=== PATIENT | female | born 1970 | race Caucasian/White ===

== ENCOUNTER → 2017-09-04 09:44 | Outpatient (CLI) | payer MEDICAID, SELFPAY ==
--- NOTE | 2017-09-04 09:46 | US_ITS ---
STUDY: THYROID ULTRASOUND REASON FOR EXAM: Female, 47 years old. Nontoxic goiter TECHNIQUE: Ultrasound evaluation of the thyroid was performed with real-time and static webster-scale imaging. COMPARISON: None. FINDINGS: RIGHT LOBE: The right lobe of the thyroid gland measures 4.3 x 2 x 1.4 cm. There is a homogeneous echotexture. Small anechoic cyst in the midpole region measuring 5 x 4 x 4 mm LEFT LOBE: The left lobe of the thyroid gland measures 4 x 1.7 x 1.4 cm. There is a homogeneous echotexture. There are no demonstrated solid, cystic or complex lesions. ISTHMUS: The isthmus measures 3 mm. The regional lymph nodes are normal. US/Thyroid IMPRESSION: Small right mid pole thyroid cyst. Otherwise the thyroid is within normal limits Electronically Signed: Nasir Bowers DO at 12:27 EDT Tel , Service support ,
== END ==
DX: E04.1 Nontoxic single thyroid nodule (principal)
CPT/HCPCS: 76536

== ENCOUNTER → 2017-11-03 12:26 | Outpatient (CLI) | payer MEDICAID, SELFPAY ==
--- NOTE | 2017-11-03 12:54 | US_ITS ---
STUDY: ULTRASOUND BREAST - RIGHT REASON FOR EXAM: Female, 47 years old. Right axillary palpable abnormality. TECHNIQUE: Axial and longitudinal images of the RIGHT breast were performed with a high resolution ultrasound transducer. COMPARISON: Comparison is made with prior mammogram dated 2017. FINDINGS: RIGHT Breast: The axillary region of the right breast was examined by ultrasound. US/Breast Limited Unilateral IMPRESSION: 2 lymph nodes are identified within the right axilla. The larger measures 1.7 cm x 1 cm x 0.8 cm. ASSESSMENT CATEGORY: There are 2 small right axillary lymph nodes. Electronically Signed: Dane Prasad MD at 14:52 EDT Tel [phone], Service support ,
== END ==
DX: C77.3 Secondary and unspecified malignant neoplasm of axilla and upper limb lymph nodes (principal)
CPT/HCPCS: 76642

== ENCOUNTER → 2018-07-21 09:26 | Outpatient (CLI) | payer MEDICAID, SELFPAY ==
--- NOTE | 2018-07-21 09:25 | SP.MBSS_ITS ---
PRIMARY / SECONDARY DIAGNOSIS: dysphagia REFERRING PHYSICIAN: Barb Lombardo APRN-AMEYA CURRENT DIET: regular/thin DENTITION: natural, WFL MENTAL STATUS: WFL RESPIRATORY STATUS: WFL, oxygenating on room air PREVIOUS MODIFIED BARIUM SWALLOW STUDY: n/a REASON FOR REFERRAL: Patient reports a globus sensation in throat, pointing to region of clavicular notch to indicate location. Reports sensation of ?fullness? or ?swelling?. Sensation present at all times, although sometimes more prominent than others. Denies difficulty swallowing food/liquid. Denies coughing/choking. Denies allergies or reflux. STUDY FINDINGS: Patient participated in a Modified Barium Swallow (MBS) study on 07/21/2018. Dr. Evans was the radiologist present for this evaluation. This study was recorded in the lateral view and images were sent to PACs for storage. The following consistencies were presented to this patient for analysis of oropharyngeal swallow function: thin liquid, pudding and a regular texture shortbread cookie. Results of the MBS are as follows: PENETRATION / ASPIRATION SCALE (KEATING): 1 = does not enter airway 2 = enters airway/above vocal folds/ejected 3 = enters airway/above vocal folds/not ejected 4 = enters airway/contacts vocal folds/ejected 5 = enters airway/contacts vocal folds/not ejected 6 = enters airway/below vocal folds/ejected 7 = enters airway/below vocal folds/not ejected despite effort 8 = enters airway/below vocal folds/no effort PENETRATION / ASPIRATION SCALE (SCORE): 1.Thin liquid 5mL teaspoon: 2 2.Thin liquid 5mL teaspoon: 1 3.Thin liquid single sip cup: 1 4.Thin liquid sequential swallows cup: 2 5.Puddin 6.Cookie: 1 7.Thin liquid single sip straw: 1 IMPRESSION ORAL PHASE CHARACTERIZED BY: LABIAL SEAL: no labial escape TONGUE CONTROL DURING BOLUS MANIPULATION: cohesive bolus between tongue to palatal seal BOLUS PREPARATION / MASTICATION: timely and efficient chewing and mashing BOLUS TRANSPORT / LINGUAL MOTION: brisk tongue motion ORAL RESIDUE: trace residue lining oral structures PHARYNGEAL PHASE CHARACTERIZED BY: INITIATION OF PHARYNGEAL SWALLOW: bolus head at posterior laryngeal surface of epiglottis at first hyoid excursion SOFT PALATE ELEVATION: no bolus between soft palate and pharyngeal wall LARYNGEAL ELEVATION: complete superior movement of thyroid cartilage with complete approximation of arytenoids cartilage to epiglottic petiole ANTERIOR HYOID EXCURSION: complete anterior movement EPIGLOTTIC MOVEMENT: partial epiglottic inversion LARYNGEAL VESTIBULE CLOSURE AT HEIGHT OF SWALLOW: complete laryngeal vestibule closure with no air/contrast in laryngeal vestibule PHARYNGEAL STRIPPING WAVE: pharyngeal stripping wave present / complete PHARYNGOESOPHAGEAL SEGMENT OPENING: partial distension and partial duration; partial obstruction of flow TONGUE BASE RETRACTION: trace column of contrast between tongue base and posterior pharyngeal wall PHARYNGEAL RESIDUE: collection of residue within or on pharyngeal structures ESOPHAGEAL PHASE CHARACTERIZED BY: ESOPHAGEAL BOLUS CLEARANCE IN THE UPRIGHT POSITION: esophageal retention see interpretation of results below for details INTERPRETATION OF RESULTS: Patient presents with mild oropharyngeal dysphagia (R13.12). Oral phase was unremarkable w/ trace contrast coating oral structures, cleared w/ independently initiated swallow as needed. Pharyngeal phase primarily marked by delayed pharyngeal swallow onset timing w/ the bolus reaching the posterior laryngeal surface of the epiglottis prior to onset resulting in intermittent transient laryngeal vestibule penetration. Penetration ejected entirely w/ swallow completion. A collection of contrast remained w/in the pharynx post deglutition, primarily in the valleculae w/ some contrast noted to accumulate intermittently in the pyriform sinuses. Vallecular residue retention attributed to incomplete epiglottic inversion. Incomplete pharyngoesophageal segment (PES) w/ slight narrowing at maximal distention. This was of no consequence to swallow function. Esophageal phase marked by a cervical osteophyte was located at the C-6 C-7 level w/ no effect on pharyngoesophageal motility. Trace contrast retention noted w/in the esophagus at C-5 C-6 level, with imaging suggestive of what looks to be a very small diverticulum. Although contrast retention was noted, it was of an extremely small amount and is unlikely to be a contributing factor to the globus sensation described by this patient. RECOMMENDATIONS: DIET TEXTURE/LIQUID CONSISTENCY: regular textures/thin liquids COMPENSATORY STRATEGIES RECOMMENDED: n/a REFERRALS: Would consider further workup via ENT to assess structures for determination of potential etiology of symptoms described. NEED FOR ADDITIONAL SKILLED DYSPHAGIA INTERVENTION: No further skilled speech-language services warranted at this time targeting dysphagia. ADDITIONAL COMMENTS/RECOMMENDATIONS: Results and recommendations were discussed with the Patient immediately following MBS completion. Images were reviewed w/ the patient to improve comprehension of findings conveyed, with the Patient verbalizing understanding and agreement with all recommendations and education provided. IMAGE COUNT: [id number]
--- NOTE | 2018-07-21 09:28 | RAD_ITS ---
STUDY: SWALLOWING STUDY REASON FOR EXAM: Female, 48 years old. Dysphagia TECHNIQUE: The examination was performed with Speech Pathology in attendance. Under fluoroscopic observation, the patient ingested thin barium, thick barium, barium pudding, and barium coated cracker. FLUOROSCOPY TIME: 1:15 minutes/seconds. 1353 images RADIOLOGIST INVOLVEMENT: Radiologist was present and providing direct supervision. COMPARISON: None. FINDINGS: The following was observed during swallowing of the various mixtures of barium: Thin Barium: There was no evidence of aspiration or laryngeal penetration. Thick Barium: There was no evidence of aspiration or laryngeal penetration. Barium Pudding: There was no evidence of aspiration or laryngeal penetration. Barium Coated Cracker: There was no evidence of aspiration or laryngeal penetration. RAD/Swallowing Function w/Video IMPRESSION: Normal tailored barium swallow study. No evidence of increased risk for aspiration. The swallow study findings were discussed with the patient by the speech pathologist at the conclusion of the examination. Please see speech pathology report for more information and recommendations. The procedure was performed by speech pathologist under the direct supervision of myself. Electronically Signed: Radha Evans, at 16:24 EDT Tel , Service support ,
== END ==
DX: R13.10 Dysphagia, unspecified (principal)
CPT/HCPCS: 74230; 92611

== ENCOUNTER → 2019-02-10 11:54 | Outpatient (CLI) | payer MEDICAID, SELFPAY ==
--- NOTE | 2019-02-10 11:58 | US_ITS ---
STUDY: ULTRASOUND OF THE FEMALE PELVIS - COMPLETE REASON FOR EXAM: Female, 48 years old. Pelvic pain LMP: The patient is postmenopausal. TECHNIQUE: Transabdominal and Transvaginal TECHNICAL QUALITY: Adequate. COMPARISON: None. FINDINGS: The uterus is anteverted and is tilted to the right side of the pelvis. The uterus measures 8.1 x 4.8 x 4.0 cm. Normal uterine cervix. The endometrium measures 3 mm in thickness, and is hyperechoic. There is no demonstrated endometrial mass. There is no demonstrated myometrial mass. I.U.D. - The patient does not have an I.U.D. The right ovary is visualized. The right ovary measures 2.4 x 1.8 x 0.7 cm. There is no right ovarian cyst or ovarian mass. There is no visualized right adnexal mass or complex lesion. There is normal arterial and normal venous vascularity. The left ovary is visualized. The left ovary measures 1.7 x 2.1 x 1.0 cm. There is no left ovarian cyst or ovarian mass. There is no visualized left adnexal mass or complex lesion. There is normal arterial and normal venous vascularity. There is no fluid in the cul-de-sac. The pre void volume of the bladder was 521 ml. US/Pelvic (Non ) IMPRESSION: Normal female pelvis. Electronically Signed: Gordon Cooper MD at 19:47 EDT , Service support ,
--- NOTE | 2019-02-10 11:58 | US_ITS ---
STUDY: ULTRASOUND OF THE FEMALE PELVIS - COMPLETE REASON FOR EXAM: Female, 48 years old. Pelvic pain LMP: The patient is postmenopausal. TECHNIQUE: Transabdominal and Transvaginal TECHNICAL QUALITY: Adequate. COMPARISON: None. FINDINGS: The uterus is anteverted and is tilted to the right side of the pelvis. The uterus measures 8.1 x 4.8 x 4.0 cm. Normal uterine cervix. The endometrium measures 3 mm in thickness, and is hyperechoic. There is no demonstrated endometrial mass. There is no demonstrated myometrial mass. I.U.D. - The patient does not have an I.U.D. The right ovary is visualized. The right ovary measures 2.4 x 1.8 x 0.7 cm. There is no right ovarian cyst or ovarian mass. There is no visualized right adnexal mass or complex lesion. There is normal arterial and normal venous vascularity. The left ovary is visualized. The left ovary measures 1.7 x 2.1 x 1.0 cm. There is no left ovarian cyst or ovarian mass. There is no visualized left adnexal mass or complex lesion. There is normal arterial and normal venous vascularity. There is no fluid in the cul-de-sac. The pre void volume of the bladder was 521 ml. US/Transvaginal Non- IMPRESSION: Normal female pelvis. Electronically Signed: Gordon Cooper MD at 19:47 EDT , Service support ,
== END ==
DX: N94.10 Unspecified dyspareunia (principal); Z78.0 Asymptomatic menopausal state
CPT/HCPCS: 76830; 76856; 93976

== ENCOUNTER → 2020-04-18 08:09 | Outpatient (CLI) | payer MEDICAID, SELFPAY ==
[2020-04-18 09:07] LABS: ALB/GLOB Ratio 0.9 RATIO (0.9-2.4); AST(SGOT) 11 U/L (15-37); Alanine Aminotransfer ALT/SGPT 24 U/L (13-56); Albumin, Serum 3.7 g/dL (3.2-5.0); Alkaline Phosphatase 127 U/L (45-117); Anion Gap 7 (5-15); BUN 17 mg/dL (7-18); Calcium,Total 8.9 mg/dL (8.5-10.1); Chloride 110 mmol/L (98-107); Creatinine, Serum 0.68 mg/dL (0.55-1.02); EST Glomerular Filtration Rate 98 mL/min (>60); Est Glom Filt Rate - Afr Amer 118 mL/min (>60); Globulin 3.9 g/dL (2.2-4.2); Glucose 121 mg/dL (74-106); Potassium 4.1 mmol/L (3.5-5.1); Protein, Total 7.6 g/dL (6.4-8.2); Sodium Level 140 mmol/L (136-145)
[2020-04-18 09:11] LABS: Hemoglobin A1c 5.9 % (3.8-5.6)
[2020-04-18 09:18] LABS: Vitamin D,25 Hydroxy 26.8 ng/mL
== END ==
DX: R73.03 Prediabetes (principal); K21.9 Gastro-esophageal reflux disease without esophagitis; E55.9 Vitamin D deficiency, unspecified
CPT/HCPCS: 36415; 80053; 82306; 83036

== ENCOUNTER → 2020-12-01 09:58 | Outpatient (CLI) | payer MEDICAID, SELFPAY ==
--- NOTE | 2020-12-01 10:00 | US_ITS ---
STUDY: SUPERFICIAL ULTRASOUND - RIGHT AXILLA REASON FOR EXAM: Female, 50 years old. BENIGN LIPOMATOUS-rt axilla TECHNIQUE: A superficial ultrasound was performed with real-time and static webster-scale imaging. COMPARISON: None. FINDINGS: Sonographic evaluation of the right axilla shows a well-defined slightly hyperechoic 1.4 x 5.7 x 1.4 cm subcutaneous lipoma. No architectural distortion, or hyperemia or subcutaneous fluid, no suspicious adenopathy US/Ext Non Vasc Limited/Soft Tiss IMPRESSION: Subcutaneous lipoma, no specific follow-up needed Electronically Signed: Chris Shaffer MD at 11:02 EDT , Service support ,
--- NOTE | 2020-12-01 10:02 | US_ITS ---
STUDY: SUPERFICIAL ULTRASOUND - RIGHT KNEE REASON FOR EXAM: Female, 50 years old. BENIGN LIPOMATOUS --LIPOMA BEHIND RT KNEE TECHNIQUE: A superficial ultrasound was performed with real-time and static webster-scale imaging. COMPARISON: None. FINDINGS: Sonographic evaluation of the right knee shows a well-defined hyperechoic 0.7 x 0.5 x 0.4 cm popliteal lipoma. No suspicious fluid collection or hyperemia. US/Ext Non Vasc Limited/Soft Tiss IMPRESSION: Subcentimeter hyperechoic lipoma. No specific follow-up needed Electronically Signed: Chris Shaffer MD at 11:02 EDT , Service support ,
== END ==
PROVIDERS: Referring Provider Nurse Practitioner Adult Health; Visit Provider Nurse Practitioner Adult Health
DX: D17.21 Benign lipomatous neoplasm of skin and subcutaneous tissue of right arm (principal); D17.30 Benign lipomatous neoplasm of skin and subcutaneous tissue of unspecified sites; D17.9 Benign lipomatous neoplasm, unspecified
CPT/HCPCS: 76882

== ENCOUNTER 2021-04-02 09:36 | Outpatient (RCR) | payer MEDICAID, SELFPAY ==
--- NOTE | 2021-05-15 10:48 | HP.OT.NRP ---
MAY HEARD was seen in my office for initial evaluation on 04/02/21. The following Plan of Care was established for this patient: Initial Frequency: 2x /Week Initial Duration: 4 Weeks Anticipated Interventions: Early Active Motion, A/AAROM/PROM, Strengthening, Massage, Triggerpoint Release, Modalities, Joint Protection/Energy Conservation, Fine Motor Coord/Melquiades, Home Program This patient was last seen in our office 04/02/21. Pertinent comments regarding their Occupational therapy will appear below: pt was seen for eval only- she did not schedule rec'd therapy sessions- due to time lapse in services pt d/c. At this point I will be discontinuing this patient from occupational therapy. I would be happy to see this patient again in the future if found appropriate by the physician. Thank you! Ratna Timmons, OTR/L, CHT
== END 2021-04-02 19:00 | disposition home or self-care (01) ==
LOC: OT 09:36
DX: S52.92XD Unspecified fracture of left forearm, subsequent encounter for closed fracture with routine healing (principal)
CPT/HCPCS: 97110; 97165

== ENCOUNTER 2021-08-20 07:36 | Day surgery (SDC) | payer MEDICAID, SELFPAY ==
--- NOTE | 2021-08-20 08:13 | H&P.OPEN ---
HPI - General [facility] Eleazar HEARD, is a 51 F who presents for screening colonoscopy. Patient never had previous colonoscopy. Patient denies family history of colon cancer. Patient has bowel months about every 2 to 3 days. Denies any blood. Patient denies any chronic abdominal pain/nausea/vomiting/reflux. PFSH Medical History Alcohol use Asthma Cervical spine fracture Heartburn Hemoglobin A1c less than 7.0% History of edema History of pain when walking Injury of head and neck Low iron Mass of right axilla Post-menopausal Prediabetes Restless legs Rheumatoid arthritis Smoker Home Medications ibuprofen 600 mg tablet 600 mg PO TID PRN tab 01/25/21 [History Last Taken Unknown] Allergy/AdvReac Type Severity Reaction Status Date / Time No Known Allergies Allergy Verified 08/20/21 08:08 Family History Other No family history of disorders Social History adopted: Yes household members: significant other housing: house current occupational status: employed pets and animals: Yes pets and animals: cat(s) Smoking Status: Current some day smoker tobacco type: cigarettes alcohol intake: current alcohol intake frequency: holidays/special occasions only substance use type: does not use seatbelt use: always do you feel safe at home: Yes Past Medical/Surgical History Planned Operation Planned Operative Procedure/s: CSCOPE OA Previous Hospitalizations/Surgeries HX Hospitalizations: No Any Problems With Anesthesia: No You/Your Family Experience Fever (Hyperthermia) With Anes: No (ADOPTED) Cholinesterase deficiency: No Cardiovascular Hx Hypertension: No Respiratory Hx Sleep Apnea: No Hx Respiratory Tract Infection/Cold (presently): No Do You Snore Loudly (louder than talking or can be heard): No Do You Often Feel Tired/ Fatigued/ Sleepy Dring Daytime?: No Has Anyone Observed You Stop Breathing During Sleep?: No Result (for STOP score): Negative Smoking Status: Current some day smoker Neurological Does patient have nerve stimulator: No Reproduction : No Allergies No Known Allergies Allergy (Verified 08/20/21 08:08) Discharge Is Pt Admitted From a Halfway, or a [place] [facility]: No After D/C, Where Do you Plan to Go: Return Home Physical Exam Const alert, oriented x3 and no apparent distress HEENT normocephalic and head/scalp atraumatic Resp normal respiratory effort Cardio regular rate GI soft to palpation and non-tender; Negative for non-distended Palpation: Negative for guarding Extremity no clubbing, cyanosis or edema Neuro CN's II-XII intact bilaterally Psych mental status grossly normal Assessment & Plan Assessment/Plan (1) Encounter for screening for malignant neoplasm of colon: Procedure Criteria Type of Procedure Procedure Type: Elective Elective Risks - COVID COVID Risk Discussion: The surgeon/proceduralist and patient have discussed in detail the risk of exposure to and/or potential harm posed by the COVID-19 virus with having a surgery/procedure at this time versus the risk of delaying the surgery/procedure. It is not possible to know either the risk of delaying the surgery or procedure or chance of getting an infection with perfect accuracy, but a joint decision was made between the patient and the surgeon/proceduralist to proceed at this time with the scheduled surgery/procedure as indicated on the consent form. Surgery Risks - Colonoscopy Risks Include but are not Limited To: Risks include but are not limited to: Bleeding, perforation requiring further surgery, inability to complete colonoscopy requiring barium enema.
[2021-08-20 08:16] VITALS: BP 136/81; PULSE 72; RESP 16; TEMP 36.4; O2SAT 97; BMI 28.8
[2021-08-20 09:07] VITALS: BP 106/65; BP 136/81; PULSE 72; RESP 16; TEMP 36.4; O2SAT 99
--- NOTE | 2021-08-20 09:07 | OP.CCLET_ITS ---
08/20/2021 [facility] Re : Colonoscopy procedure for Jo Ann Dyer [facility] This procedure was performed on Friday, August 20, 2021. My impressions and recommendations are as follows: Impressions : - The entire examined colon is normal on direct and retroflexion views. - No specimens collected. Recommendations : - Discharge patient to home. - Resume previous diet. - Continue present medications. - Repeat colonoscopy in 10 years for screening purposes. My findings are described in the full procedure note, which is enclosed. If I can be of further assistance, please feel free to contact me at Doctor phone number(s): , Work: . Sincerely, MD Laura Gallardo MD 08/20/2021 9:06:49 AM This report has been signed electronically.
--- NOTE | 2021-08-20 09:07 | OP.COLON_ITS ---
Patient Name: Jo Ann Dyer Procedure Date: 08/20/2021 8:37 AM Date of : 1970 Age: 51 Procedure: Colonoscopy Indications: Screening for colorectal malignant neoplasm Providers: Laura Lea MD Medicines: Monitored Anesthesia Care Patient Profile: This is a 51 year old female. Last Colonoscopy: none. The patient's first colonoscopy is today. Complications: No immediate complications. Procedure: Pre-Anesthesia Assessment: - Prior to the procedure, a History and Physical was performed, and patient medications and allergies were reviewed. The patient's tolerance of previous anesthesia was also reviewed. The risks and benefits of the procedure and the sedation options and risks were discussed with the patient. All questions were answered, and informed consent was obtained. Prior Anticoagulants: The patient has taken no previous anticoagulant or antiplatelet agents. ASA Grade Assessment: Per anesthesia. After reviewing the risks and benefits, the patient was deemed in satisfactory condition to undergo the procedure. After I obtained informed consent, the scope was passed under direct vision. Throughout the procedure, the patient's blood pressure, pulse, and oxygen saturations were monitored continuously. The Colonoscope was introduced through the anus and advanced to the cecum, identified by the appendiceal orifice, ileocecal valve and palpation. The colonoscopy was performed without difficulty. The patient tolerated the procedure well. The quality of the bowel preparation was good. Scope In: 8:46:37 AM Scope Withdrawal Time 0 hours 8 minutes 52 seconds Scope Out: 9:00:35 AM Total Procedure Duration Time 0 hours 13 minutes 58 seconds Findings: The perianal and digital rectal examinations were normal. The entire examined colon appeared normal on direct and retroflexion views. Impression: - The entire examined colon is normal on direct and retroflexion views. - No specimens collected. Recommendation: - Discharge patient to home. - Resume previous diet. - Continue present medications. - Repeat colonoscopy in 10 years for screening purposes. Procedure Code(s): --- Professional --- G0121, PT, Colorectal cancer screening; colonoscopy on individual not meeting criteria for high risk Diagnosis Code(s): --- Professional --- Z12.11, Encounter for screening for malignant neoplasm of colon CPT copyright 2017 [employer]. All rights reserved. The codes documented in this report are preliminary and upon mfts review may be revised to meet current compliance requirements. MD Laura Gallardo MD 08/20/2021 9:06:49 AM This report has been signed electronically. Number of Addenda: 0 Note Initiated On: 08/20/2021 8:37 AM
[2021-08-20 09:10] VITALS: BP 102/68; BP 136/81; PULSE 69; RESP 16; O2SAT 98
[2021-08-20 09:15] VITALS: BP 102/69; BP 136/81; PULSE 72; RESP 16; O2SAT 97
[2021-08-20 09:23] VITALS: BP 110/72; BP 136/81; PULSE 69; RESP 16; TEMP 36.4; O2SAT 98
[2021-08-20 09:36] VITALS: BP 136/81
== END 2021-08-20 09:37 | disposition home or self-care (01) ==
LOC: EN 07:39 → AC 07:41
PROVIDERS: Visit Provider Surgery
PROC: 0DJD8ZZ Inspection of Lower Intestinal Tract, Via Natural or Artificial Opening Endoscopic (ICD-10-PCS; CPT 45378; principal; 2021-08-20 08:25)
DX: Z12.11 Encounter for screening for malignant neoplasm of colon (principal); F17.210 Nicotine dependence, cigarettes, uncomplicated
CPT/HCPCS: G0121; J7120

== ENCOUNTER → 2021-08-30 | Outpatient (CLI) | payer MEDICAID, SELFPAY ==
--- NOTE | 2021-08-30 08:50 | BI_ITS ---
MAMMOGRAPHY - BILATERAL DIAGNOSTIC REASON FOR EXAM: Female, 51 years old. History of right axillary lipoma. PERTINENT HISTORY: Non-contributory. TECHNIQUE: Digital bilateral breast elise (3D mammographic acquisition) in the CC and MLO projections. 2-D mediolateral oblique (MLO) and craniocaudad (CC) views of both breasts were obtained. CAD: Full Field Digital Mammography with Computer Added Detection was performed. COMPARISON: Comparison is made with prior examination degenerated 2017. FINDINGS: Breast Composition: The breasts are heterogeneously dense, which may obscure small masses. There is a 6.5 cm x 6.3 cm fat-containing nodular density in the right axilla. A similar-appearing fatty nodular density is seen in the left axillary region measuring 4.1 cm x 6.3 cm. No mass lesion or calcifications are seen within the breast tissue. No other significant abnormalities are identified. BI/DIAG MAMM W/CAD, BILAT IMPRESSION: Bilateral fatty masses in the axillary regions as described. Correlation with ultrasound is recommended. ASSESSMENT CATEGORY: BIRADS Category 0: Incomplete. Need additional imaging evaluation. A letter regarding these results will be sent to the patient by the facility within 30 days. Approximately 10% of breast cancers are not detected by mammography. A normal mammogram should not delay biopsy of a clinically suspicious abnormality. Electronically Signed: Dane Prasad MD at 10:29 EDT ,
--- NOTE | 2021-08-30 08:50 | US_ITS ---
STUDY: ULTRASOUND BREAST - RIGHT REASON FOR EXAM: Female, 51 years old. Right axillary mass. TECHNIQUE: Axial and longitudinal images of the RIGHT breast were performed with a high resolution ultrasound transducer. # OF IMAGES: 14 COMPARISON: Comparison is made with prior mammogram done earlier in the day as well as prior sonogram of the right breast dated 11/03/2017. FINDINGS: RIGHT Breast: The palpable abnormality corresponds to a 2.5 cm x 5 cm x 0.9 centimeter fat-containing mass. This is in keeping with a lipoma. US/Breast Limited Unilateral IMPRESSION: Findings in keeping with a 2.5 cm x 5 cm x 0.9 cm lipoma in the right axillary region. ASSESSMENT CATEGORY: BIRADS Category 2: Benign. A letter regarding these results will be sent to the patient by the facility within 30 days. Electronically Signed: Dane Prasad MD at 11:14 EDT ,
--- NOTE | 2021-08-30 09:05 | BD_ITS ---
STUDY: DUAL ENERGY X-RAY ABSORPTIOMETRY / DXA REASON FOR EXAM: Female, 51 years old. M810. Patient is postmenopausal. TECHNIQUE: Bone Mineral Density (BMD) measurements of lumbar spine and bilateral hips were obtained. COMPARISON: None. FINDINGS: Lumbar Spine (L1-L4): g/cm2 (0.832) / T-score (-1.7) / Z-score (-1.0) Findings are suggestive of osteopenia with a moderate fracture risk. Left Femur Total: g/cm2 (0.829) / T-score (-0.9) / Z-score (-0.4) Left Femoral Neck: g/cm2 (0.730) / T-score (-1.1) / Z-score (-0.3) Right Femur Total: g/cm2 (0.839) / T-score (-0.8) / Z-score (-0.4) Right Femoral Neck: g/cm2 (0.762) / T-score (-0.8) / Z-score (0.0) BD/Dexa Bone Density Study IMPRESSION: The patient is considered osteopenic as outlined below according to World [employer] Organization (WHO) criteria with a moderate fracture risk. Reference Information: The T-score is the number of standard deviations above or below the standard which is normal for young adults at their peak bone mineral density. The World Health Organization (WHO) interprets the T-scores as follows: Above -1 Normal bone density Between -1 and -2.5 Osteopenia Equal to / or below -2.5 Osteoporosis As a practical clinical guideline, osteopenia may be graded as follows: Mild -1 through -1.5 Moderate -1.6 through -2.0 Severe -2.1 through -2.4 The Z-score is the number of standard deviations above or below age-matched controls. A Z-score of less than -1.5 would be considered abnormal. References: 1. NIH Osteoporosis and Related Bone Diseases www osteo.org 2. International Society for Clinical Densitometry www iscd.org 3. National Osteoporosis Foundation www nof.org Electronically Signed: Dane Prasad MD at 14:54 EDT ,
== END | disposition home or self-care (01) ==
PROVIDERS: Visit Provider Nurse Practitioner Adult Health
DX: M81.0 Age-related osteoporosis without current pathological fracture (principal); R22.31 Localized swelling, mass and lump, right upper limb; N63.11 Unspecified lump in the right breast, upper outer quadrant; R73.03 Prediabetes; F17.200 Nicotine dependence, unspecified, uncomplicated; R73.09 Other abnormal glucose
CPT/HCPCS: 77062; 76642; 77066; 77080; G0279

== ENCOUNTER → 2022-05-01 | Outpatient (CLI) | payer MEDICAID, SELFPAY ==
--- NOTE | 2022-05-01 13:42 | RAD_ITS ---
STUDY: X-RAY - RIGHT FOOT CLINICAL: Female, 52 years old. Pain TECHNIQUE: 3 view(s) of the foot. COMPARISON: None. FINDINGS: Normal talus and tarsal bones. Calcaneal spurs Normal visualized subtalar, talonavicular, calcaneocuboid, tarsal and tarsometatarsal articulations. Normal metatarsi. There is degenerative arthrosis of the metatarsophalangeal joint of the hallux . Normal tibial and fibular sesamoid bones. Normal interphalangeal joint of the great toe. Normal phalanges of the great toe. The soft tissue structures are unremarkable. RAD/Foot min 3 Views IMPRESSION: Calcaneal spurs with distal joint arthrosis, no demonstrated fracture, or suspicious osseous lesion Electronically Signed: Chris Shaffer MD at 12:14 EST ,
== END | disposition home or self-care (01) ==
LOC: RAD 13:40
PROVIDERS: Referring Provider Nurse Practitioner Family; Visit Provider Nurse Practitioner Family
DX: M19.071 Primary osteoarthritis, right ankle and foot (principal); M77.31 Calcaneal spur, right foot; M67.40 Ganglion, unspecified site
CPT/HCPCS: 73630

== ENCOUNTER → 2022-11-28 | Outpatient (CLI) | payer MEDICAID, SELFPAY ==
--- NOTE | 2022-11-28 13:02 | RAD_ITS ---
STUDY: X-RAY LEFT FOOT, LEFT GREAT TOE REASON FOR EXAM: Female, 52 years old. Left great toe inj TECHNIQUE: 3 view(s) of the toe were obtained. COMPARISON: None. FINDINGS: Normal visualized metatarsus. There is arthrosis of the metatarsophalangeal (M.T.P.) joint. Normal interphalangeal joints. Normal phalanges and interphalangeal joints. Soft tissue swelling at the first metatarsophalangeal joint. RAD/Toe(s) Min 2 Views IMPRESSION: Soft tissue swelling overlying the first metatarsophalangeal joint. No fracture is seen. Electronically Signed: Dane Prasad MD at 13:23 EDT ,
== END | disposition home or self-care (01) ==
LOC: MTRAD 13:00
PROVIDERS: Visit Provider Physician Assistant Surgical
DX: S90.112A Contusion of left great toe without damage to nail, initial encounter (principal)
CPT/HCPCS: 73660

== ENCOUNTER 2023-04-01 17:52 | Emergency (ER) | payer MEDICAID, SELFPAY ==
[2023-04-01 17:53] VITALS: BP 137/81; PULSE 92; RESP 17; TEMP 36.2; O2SAT 98; BMI 30.6
[2023-04-01 18:46] LABS: Absolute Lymphocyte Count 2.42 X10^3/uL (0.83-4.51); Absolute Neutrophil Count 7.5 X10^3/uL (2.0-7.7); Basophil# 0.05 X10^3/uL; Basophil% 0.5 % (0-1); Eosinophil# 0.23 X10^3/uL; Eosinophils% 2.1 % (0-5); Hematocrit 40.3 % (37-47); Hemoglobin 12.7 g/dL (12.0-15.0); Lymphocyte # 2.42 X10^3/ul (0.83-4.51); Lymphocyte % 22.5 % (19-41); Mean Corp Hgb Conc 31.5 g/dL (32-36); Mean Corpuscular Hgb 28.7 pg (27.0-32.0); Mean Platelet Vol. 10.3 fl (6.2-12.0); Monocyte# 0.49 X10^3/uL; Monocyte% 4.6 % (0-10); NRBC Flagged by Analyzer 0 % (0-5); Neutrophil # 7.53 X10^3/uL (2.7-7.7); Neutrophil % 69.9 % (47-70); Platelet Count 389 K/mm3 (150-450); RBC Distribution Width CV 14.2 % (11.6-14.6); RBC Distribution Width SD 47.8 fl (35.1-43.9); Red Blood Count 4.43 M/mm3 (4.2-5.4); White Blood Count 10.8 K/mm3 (4.4-11.0)
--- NOTE | 2023-04-01 18:50 | EDS_ITS ---
HPI History of Present Illness Chief Complaint: Lower Extremity Injury Informant: patient Narrative Narrative: Patient noticed yesterday that her left leg just seemed a little felix than the right. It is also little bit sore. No fevers chills nausea vomiting. No injury. She takes no medications routinely. She has no history of DVT or PE. 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 But she has been doing this for a long time. Nothing really makes her symptoms better. Pressing on it does make it worse. She is not having syncope, presyncope, chest pain or dyspnea. PFSH PFSH Medical History Alcohol use Asthma Cervical spine fracture Dysesthesia Heartburn Hemoglobin A1c less than 7.0% History of edema History of pain when walking Injury of head and neck Low iron Mass of right axilla Post-menopausal Prediabetes Restless legs Rheumatoid arthritis Smoker Home Medications ibuprofen 600 mg tablet 600 mg PO TID PRN Pain 01/25/21 [History Last Taken Unknown] ibuprofen 800 mg tablet 800 mg PO Q8H PRN pain #30 tabs 11/28/22 [Rx Last Taken Unknown] ibuprofen 800 mg tablet 800 mg PO Q12H PRN pain #30 tabs 04/01/23 [Rx Last Taken Unknown] Allergy/AdvReac Type Severity Reaction Status Date / Time No Known Allergies Allergy Verified 04/01/23 17:53 Family History Other No family history of disorders Social History adopted: Yes household members: significant other housing: house current occupational status: employed pets and animals: Yes pets and animals: cat(s) Smoking Status: Current some day smoker tobacco type: cigarettes alcohol intake: current alcohol intake frequency: holidays/special occasions only substance use type: does not use seatbelt use: always do you feel safe at home: Yes ROS ROS ED ROS Narrative A complete review of systems was performed and is negative except as documented in the history of present illness. Some specific details below. Constitutional: No recent fevers or chills. EYE: No visual complaints ENT: No difficulty swallowing. No swelling. No pain. No reflux symptoms. CV: No chest pain palpitations or syncope. Respiratory: Not short of breath. No coughing. No hemoptysis. GI: No abdominal pain. No nausea vomiting diarrhea. No blood in stool. : No frequency dysuria or hematuria. Musculoskeletal: No recent trauma. See history of present illness. Skin: No rash. Nondiaphoretic. Neuro: No weakness or numbness. Endocrine: No polyuria or polydipsia. EXAM Physical Exam Narrative Exam Narrative: CONSTITUTIONAL: Patient is nontoxic in appearance. The patient looks comfortable. Work of breathing looks normal. HEENT: No notable trauma. Mucous membranes moist. EYES: No pallor. NECK:No JVD. No stridor. CARDIOVASCULAR: Regular rate. Regular rhythm. No notable murmur. No JVD. RESPIRATORY: No respiratory distress. Breathing is unlabored. No wheezes. No rhonchi. No rales. No pain with a deep breath. No chest wall tenderness. GASTROINTESTINAL: Not distended. Bowel sounds are normal. No tenderness. GENITOURINARY: No tenderness over the bladder. No CVA tenderness. MUSCULOSKELETAL: The left lower calf is just minimally erythematous. But it is not warm. There is some mild tenderness in the proximal calf. I do not feel a cord though. The calf is about 1 cm larger than the right. Distal pulses are intact and normal. Sensation is normal. NEUROLOGICAL: Patient is alert and appropriate. No focal deficit noted. SKIN: No noted rashes other than the mild redness of the distal left calf. No diaphoresis. PSYCHIATRIC: Patient is calm. Mood is appropriate. Const Vital Signs: 04/01/23 17:53 Temperature 97.1 F L Temperature Source Temporal Pulse Rate 92 Respiratory Rate 17 Blood Pressure 137/81 H Blood Pressure Mean 99 Pulse Ox 98 Oxygen Delivery Method Room Air MDM MDM MDM Narrative Medical decision making narrative: Patient CBC is normal. Patient's electrolytes are overall normal other than mild elevation of chloride. Her glucose is slightly up but this can be rechecked. Patient's ultrasound of her legs shows no DVT. She does have signs of a Chavarria's cyst that extends down the calf. The tech stated that it looks like there may have been a slight rupture of the cyst which would explain her symptoms. Patient has no fever no white count. Her leg is not warm. I do not think this is cellulitis. If she develops fevers pain more redness or warmth we may change her therapy but at this point I think ice rest is appropriate. Patient normally takes ibuprofen at 800 mg but is out so I will prescribe this. We discussed taking this with food and side effects of the medicine. Lab Data Attestation: I reviewed the patient's lab results. Labs: Laboratory Results - last 24 hr 04/01/23 18:39 WBC 10.8 RBC 4.43 Hgb 12.7 Hct 40.3 MCV 91.0 MCH 28.7 MCHC 31.5 L RDW Std Deviation 47.8 H RDW Coeff of Filipe 14.2 Plt Count 389 MPV 10.3 Immature Gran % (Auto) 0.400 Neut % (Auto) 69.9 Lymph % (Auto) 22.5 Tillman % (Auto) 4.6 Eos % (Auto) 2.1 Baso % (Auto) 0.5 Absolute Neuts (auto) 7.5 Absolute Lymphs (auto) 2.42 Nucleated RBC % 0 Sodium 140 Potassium 4.0 Chloride 110 H Carbon Dioxide 27.0 Anion Gap 3 L BUN 14 Creatinine 0.87 Estim Creat Clear Calc 57.73 Est GFR (MDRD) Af Amer 88 Est GFR (MDRD) Non-Af 72 BUN/Creatinine Ratio 16.0 Glucose 160 H Calcium 8.7 Discharge Plan Triage Chief Complaint: Lower Extremity Injury ED Provider: Wilberto Goldstein Dx/Rx/DC Orders Clinical Impression: Chavarria's cyst, ruptured Instructions: ED Chavarria's Cyst Prescriptions: New ibuprofen 800 mg tablet 800 mg PO Q12H PRN (Reason: pain) Qty: 30 0RF No Action ibuprofen 600 mg tablet 600 mg PO TID PRN (Reason: Pain) Patient Comments: TAKE 1 TABLET BY MOUTH THREE TIMES A DAY NEEDED ibuprofen 800 mg tablet 800 mg PO Q8H PRN (Reason: pain) Qty: 30 0RF Primary Care Provider: [facility] Martha Ray Referrals: [facility] Martha Ray [Primary Care Provider] - 3-5 Days if not improving Disposition Disposition: Home, Self Care
[2023-04-01 19:02] LABS: Anion Gap 3 (5-15); BUN 14 mg/dL (7-18); Calcium,Total 8.7 mg/dL (8.5-10.1); Chloride 110 mmol/L (98-107); Creatinine, Serum 0.87 mg/dL (0.55-1.02); EST Glomerular Filtration Rate 72 mL/min (>60); Est Glom Filt Rate - Afr Amer 88 mL/min (>60); Estimated Creatinine Clearance 57.73 ml/min; Glucose 160 mg/dL (74-106); Sodium Level 140 mmol/L (136-145)
--- NOTE | 2023-04-01 19:02 | US_ITS ---
STUDY: VENOUS DOPPLER ULTRASOUND - LEFT LOWER EXTREMITY REASON FOR EXAM: Female, 52 years old. LT MEDIAL CALF PAIN/ SWELLING TECHNIQUE: Ultrasound evaluation of the deep vein system to include berumen-scale imaging and compression was performed. Berumen-scale imaging and Doppler sonographic evaluation, including duplex spectral analysis and qualitative color flow sonography, was performed. COMPARISON: None. FINDINGS: Common Femoral Vein: Normal compression, spontaneity and augmentation. Normal color Doppler. Common Femoral Vein/Greater Saphenous Junction: Normal compression, spontaneity and augmentation. Normal color Doppler. Femoral Proximal: Normal compression, spontaneity and augmentation. Normal color Doppler. Femoral Middle: Normal compression, spontaneity and augmentation. Normal color Doppler. Femoral Distal: Normal compression, spontaneity and augmentation. Normal color Doppler. Popliteal Vein: Normal compression, spontaneity and augmentation. Normal color Doppler. Posterior Tibial Vein: Normal compression, spontaneity and augmentation. Normal color Doppler. Peroneal Vein: Normal compression, spontaneity and augmentation. Normal color Doppler. Possible ruptured Chavarria''s cyst measuring 4.4 cm greatest dimension. US/Venous Duplex Imag/Limited/Uni IMPRESSION: No evidence for DVT. Electronically Signed: Merlin Pillai MD at 20:03 EST ,
== END 2023-04-01 20:05 | disposition home or self-care (01) ==
PROVIDERS: Emergency Provider Emergency Medicine; Visit Provider Emergency Medicine
DX: M66.0 Rupture of popliteal cyst (principal); F17.210 Nicotine dependence, cigarettes, uncomplicated
CPT/HCPCS: 80048; 85025; 93971; 99282

== ENCOUNTER → 2023-12-17 | Outpatient (CLI) | payer MEDICAID, SELFPAY ==
[2023-12-17 12:26] LABS: Absolute Lymphocyte Count 1.71 X10^3/uL (0.83-4.51); Absolute Neutrophil Count 9.8 X10^3/uL (2.0-7.7); Basophil# 0.07 X10^3/uL; Basophil% 0.6 % (0-1); Eosinophil# 0.26 X10^3/uL; Eosinophils% 2.1 % (0-5); Hematocrit 41.5 % (37-47); Hemoglobin 13.2 g/dL (12.0-15.0); Lymphocyte # 1.71 X10^3/ul (0.83-4.51); Lymphocyte % 13.9 % (19-41); Mean Corp Hgb Conc 31.8 g/dL (32-36); Mean Corpuscular Hgb 29.4 pg (27.0-32.0); Mean Corpuscular Volume 92.4 fL (81-99); Mean Platelet Vol. 10.3 fl (6.2-12.0); Monocyte# 0.35 X10^3/uL; Monocyte% 2.9 % (0-10); NRBC Flagged by Analyzer 0 % (0-5); Neutrophil # 9.83 X10^3/uL (2.7-7.7); Neutrophil % 80.1 % (47-70); Platelet Count 355 K/mm3 (150-450); RBC Distribution Width SD 47.6 fl (35.1-43.9); Red Blood Count 4.49 M/mm3 (4.2-5.4); White Blood Count 12.3 K/mm3 (4.4-11.0)
[2023-12-17 12:51] LABS: ALB/GLOB Ratio 0.8 RATIO (0.9-2.4); AST(SGOT) 27 U/L (15-37); Alanine Aminotransfer ALT/SGPT 36 U/L (13-56); Albumin, Serum 3.3 g/dL (3.2-5.0); Alkaline Phosphatase 138 U/L (45-117); Anion Gap 6 (5-15); BUN 16 mg/dL (7-18); BUN/Creat Ratio 19.3 RATIO (10-20); Calcium,Total 8.4 mg/dL (8.5-10.1); Chloride 110 mmol/L (98-107); Cholesterol 174 mg/dL (200); Creatinine, Serum 0.83 mg/dL (0.55-1.02); EST Glomerular Filtration Rate 76 mL/min (>60); Est Glom Filt Rate - Afr Amer 93 mL/min (>60); Globulin 4.3 g/dL (2.2-4.2); Glucose 118 mg/dL (74-106); High Density Lipoprotein 67 mg/dL; Protein, Total 7.6 g/dL (6.4-8.2); Sodium Level 140 mmol/L (136-145); Thyroid Stim Hormone (TSH) 0.451 uIU/mL (0.358-3.740); Triglycerides 99 mg/dL; Very Low Density Lipoprotein 20 mg/dL (5-40)
== END | disposition home or self-care (01) ==
LOC: VSLAB 11:07
PROVIDERS: PCP Family Medicine; Visit Provider Family Medicine
DX: R00.2 Palpitations (principal)
CPT/HCPCS: 36415; 80053; 80061; 84443; 85025

== ENCOUNTER → 2023-12-30 | Outpatient (CLI) | payer MEDICAID, SELFPAY ==
[2023-12-30 17:18] LABS: Absolute Lymphocyte Count 2.22 X10^3/uL (0.83-4.51); Absolute Neutrophil Count 8.3 X10^3/uL (2.0-7.7); Basophil# 0.05 X10^3/uL; Basophil% 0.4 % (0-1); Eosinophil# 0.28 X10^3/uL; Eosinophils% 2.5 % (0-5); Hematocrit 39.4 % (37-47); Hemoglobin 12.7 g/dL (12.0-15.0); Lymphocyte # 2.22 X10^3/ul (0.83-4.51); Lymphocyte % 19.8 % (19-41); Mean Corp Hgb Conc 32.2 g/dL (32-36); Mean Corpuscular Hgb 29.6 pg (27.0-32.0); Mean Corpuscular Volume 91.8 fL (81-99); Mean Platelet Vol. 10.2 fl (6.2-12.0); Monocyte# 0.35 X10^3/uL; Monocyte% 3.1 % (0-10); NRBC Flagged by Analyzer 0 % (0-5); Neutrophil # 8.29 X10^3/uL (2.7-7.7); Neutrophil % 73.8 % (47-70); Platelet Count 368 K/mm3 (150-450); Red Blood Count 4.29 M/mm3 (4.2-5.4); White Blood Count 11.2 K/mm3 (4.4-11.0)
[2023-12-30 17:44] LABS: ALB/GLOB Ratio 0.8 RATIO (0.9-2.4); AST(SGOT) 17 U/L (15-37); Alanine Aminotransfer ALT/SGPT 30 U/L (13-56); Albumin, Serum 3.5 g/dL (3.2-5.0); Alkaline Phosphatase 136 U/L (45-117); Anion Gap 9 (5-15); BUN 22 mg/dL (7-18); BUN/Creat Ratio 26.9 RATIO (10-20); Calcium,Total 9.1 mg/dL (8.5-10.1); Chloride 110 mmol/L (98-107); Creatinine, Serum 0.82 mg/dL (0.55-1.02); EST Glomerular Filtration Rate 78 mL/min (>60); Est Glom Filt Rate - Afr Amer 94 mL/min (>60); Globulin 4.2 g/dL (2.2-4.2); Glucose 115 mg/dL (74-106); Potassium 3.9 mmol/L (3.5-5.1); Protein, Total 7.7 g/dL (6.4-8.2); Sodium Level 143 mmol/L (136-145)
== END | disposition home or self-care (01) ==
LOC: VSLAB 15:51
PROVIDERS: PCP Family Medicine; Visit Provider Nurse Practitioner Family
DX: D72.829 Elevated white blood cell count, unspecified (principal)
CPT/HCPCS: 36415; 80053; 85025

== ENCOUNTER → 2024-12-13 | Outpatient (CLI) | payer MEDICAID, SELFPAY ==
[2024-12-13 12:07] LABS: Hematocrit 40.0 % (37-47); Hemoglobin 13.1 g/dL (12.0-15.0); Immature Granulocytes Count 0.030 X10^3/uL (0.0-0.0); Mean Corp Hgb Conc 32.8 g/dL (32-36); Mean Corpuscular Volume 92.6 fL (81-99); Mean Platelet Vol. 10.3 fl (6.2-12.0); NRBC Flagged by Analyzer 0 % (0-5); Platelet Count 376 K/mm3 (150-450); RBC Distribution Width CV 13.9 % (11.6-14.6); RBC Distribution Width SD 47.4 fl (35.1-43.9); Red Blood Count 4.32 M/mm3 (4.2-5.4); White Blood Count 8.5 K/mm3 (4.4-11.0)
[2024-12-13 12:45] LABS: AST(SGOT) 24 U/L (<=31); Alanine Aminotransfer ALT/SGPT 33 U/L (<=34); Albumin, Serum 4.0 g/dL (3.5-5.0); Alkaline Phosphatase 147 U/L (35-104); Anion Gap 13 (5-15); BUN 14 mg/dL (4-19); BUN/Creat Ratio 19.4 RATIO (10-20); Calcium,Total 9.1 mg/dL (7.6-11.0); Carbon Dioxide 20.4 mmol/L (21.0-32.0); Chloride 105 mmol/L (98-108); Cholesterol 161 mg/dL (<=200); Globulin 3.2 g/dL (2.2-4.2); Glucose 160 mg/dL (70-99); Low Density Lipoprotein Calc. 89 mg/dL; Potassium 4.1 mmol/L (3.3-5.1); Triglycerides 79 mg/dL; Very Low Density Lipoprotein 16 mg/dL (5-40); cholesterol:hdl ratio screen 2.84
[2024-12-13 13:09] LABS: CRP 25.20 mg/L (0.0-3.0); Iron 74 ug/dL (50-170); Iron Binding Capacity,Total 336 ug/dL (250-450); Iron Binding Capacity,Unsat 262 ug/dL (228-428)
[2024-12-13 13:10] LABS: Ferritin 168 ng/mL (22-378); Vitamin B12 372 pg/mL (180-914); Vitamin D,25 Hydroxy 13.2 ng/mL (30-100)
== END | disposition home or self-care (01) ==
LOC: VSLAB 09:29
PROVIDERS: PCP Nurse Practitioner Family; Visit Provider Nurse Practitioner Family
DX: M06.9 Rheumatoid arthritis, unspecified (principal); R53.83 Other fatigue; Z13.1 Encounter for screening for diabetes mellitus; Z13.220 Encounter for screening for lipoid disorders
CPT/HCPCS: 36415; 80053; 80061; 82306; 82607; 82728; 83036; 83540; 83550; 84439; 84443; 85025; 85652; 86140